=== PATIENT | female | born 1965 | race Caucasian/White ===

== ENCOUNTER → 2016-11-20 | Outpatient (REF) | payer BC | LOC: M SFHCWAGY 14:51 | PROVIDERS: ATTEND Nurse Practitioner Family | DX: Z12.4 Encounter for screening for malignant neoplasm of cervix (principal); Z12.31 Encounter for screening mammogram for malignant neoplasm of breast ==

== ENCOUNTER → 2016-11-20 | Outpatient (CLI) | payer BC ==
--- NOTE | 2016-11-20 15:21 | REPMRS ---
Patient History The patient states she had a clinical breast exam in 11/2016. Family history of colorectal cancer in sister at age 50 or over, breast cancer in sister, and ovarian cancer in sister. Digital Woman Screen Mammo: November 20, 2016 - Exam #: [id number] Bilateral CC and MLO view(s) were taken. Technologist: Ayana James, Technologist Prior study comparison: November 15, 2015, bilateral digital mammo screening bilat, performed at [facility]. November 02, 2014, bilateral digital mammo screening bilat, performed at [facility]. FINDINGS: There are scattered fibroglandular densities. There has been no change in the appearance of the mammogram from the prior studies. There is a mild amount of residual fibroglandular tissue which is fairly symmetric. There is no interval development of dominant mass, architectural distortion, or clustered microcalcification suggestive of malignancy. ASSESSMENT: BI-RADS/ACR category 1 mammogram. Negative. Recommendation Routine screening mammogram in 1 year (for women over age 40). This mammogram was interpreted with the aid of an FDA-approved computer-aided dectection system. Electronically Signed By: Duke Madrid MD 11/20/16 [id number]
== END ==
LOC: M WHC 14:24
PROVIDERS: ATTEND Nurse Practitioner Family
DX: Z12.31 Encounter for screening mammogram for malignant neoplasm of breast (principal)

== ENCOUNTER → 2018-03-16 | Outpatient (CLI) | payer BC ==
[2018-03-16 11:00] LABS: HEMATOCRIT 43.4 % (36.0-47.0); HEMOGLOBIN 14.3 g/dl (12.0-15.5); MEAN CORPUSCULAR HEMOGLOBIN 31.6 pg (27.0-33.0); MEAN CORPUSCULAR HGB CONC 32.9 g/dl (32.0-36.5); MEAN CORPUSCULAR VOLUME 95.8 fl (80.0-96.0); PLATELET COUNT, AUTOMATED 205 10^3/uL (150-450); RED BLOOD COUNT 4.53 10^6/uL (4.00-5.40); RED CELL DISTRIBUTION WIDTH 12.2 % (11.5-14.5); WHITE BLOOD COUNT 7.2 10^3/uL (4.0-10.0)
[2018-03-16 11:17] LABS: ESTIMATED AVERAGE GLUCOSE 108 MG/DL (60-110); HEMOGLOBIN A1c 5.4 %
[2018-03-16 11:33] LABS: ALBUMIN 3.7 GM/DL (3.2-5.2); ALBUMIN/GLOBULIN RATIO 0.97 (1.00-1.93); ALKALINE PHOSPHATASE 79 U/L (45-117); ALT/SGPT 27 U/L (12-78); ANION GAP 7 MEQ/L (8-16); AST/SGOT 23 U/L (7-37); BILIRUBIN,TOTAL 0.4 MG/DL (0.2-1.0); BLOOD UREA NITROGEN 8 MG/DL (7-18); CARBON DIOXIDE LEVEL 32 MEQ/L (21-32); CHLORIDE LEVEL 105 MEQ/L (98-107); CHOLESTEROL LEVEL 203 MG/DL (<200); CHOLESTEROL RISK RATIO 2.445 (<5); CREATININE FOR GFR 0.67 MG/DL (0.55-1.30); GLOMERULAR FILTRATION RATE > 60.0 (>51); GLUCOSE, FASTING 82 MG/DL (70-100); HDL CHOLESTEROL 83 MG/DL (>40); LDL CHOLESTEROL 102.8 MG/DL (<100); NON-HDL-C 120 MG/DL; POTASSIUM SERUM 4.7 MEQ/L (3.5-5.1); SODIUM LEVEL 144 MEQ/L (136-145); THYROID STIMULATING HORMONE 0.281 uIU/ML (0.358-3.740); TOTAL PROTEIN 7.5 GM/DL (6.4-8.2); TRIGLYCERIDES LEVEL 86 MG/DL (<150)
[2018-03-18 12:44] LABS: TOTAL 25(OH) VITAMIN D 10.3 NG/ML (30.0-100.0)
== END ==
LOC: M LAB 10:30
DX: E03.9 Hypothyroidism, unspecified (principal); D64.9 Anemia, unspecified; R53.83 Other fatigue
CPT/HCPCS: 71046

== ENCOUNTER → 2020-01-09 | Outpatient (REF) | payer BC ==
[2020-01-09 13:45] LABS: HEMOGLOBIN 12.9 g/dl (12.0-15.5); MEAN CORPUSCULAR HEMOGLOBIN 32.9 pg (27.0-33.0); MEAN CORPUSCULAR HGB CONC 32.3 g/dl (32.0-36.5); PLATELET COUNT, AUTOMATED 204 10^3/uL (150-450); RED BLOOD COUNT 3.92 10^6/uL (4.00-5.40)
[2020-01-09 14:08] LABS: ALBUMIN 3.7 GM/DL (3.2-5.2); ALT/SGPT 29 U/L (12-78); BILIRUBIN,TOTAL 0.5 MG/DL (0.2-1.0); BLOOD UREA NITROGEN 13 MG/DL (7-18); CALCIUM LEVEL 9.2 MG/DL (8.5-10.1); CARBON DIOXIDE LEVEL 30 MEQ/L (21-32); CHLORIDE LEVEL 104 MEQ/L (98-107); CHOLESTEROL LEVEL 194 MG/DL (<200); CHOLESTEROL RISK RATIO 2.282 (<5); CREATININE FOR GFR 0.57 MG/DL (0.55-1.30); FERRITIN 35 NG/ML (8-252); GLOMERULAR FILTRATION RATE > 60.0 (>51); GLUCOSE, FASTING 83 MG/DL (70-100); HDL CHOLESTEROL 85 MG/DL (>40); IRON (FE) 73 UG/DL (50-170); LDL CHOLESTEROL 95 MG/DL (<100); NON-HDL-C 109 MG/DL; PERCENT SATURATION 20.9 % (13.2-45.0); POTASSIUM SERUM 5.1 MEQ/L (3.5-5.1); SODIUM LEVEL 139 MEQ/L (136-145); THYROID STIMULATING HORMONE 0.474 uIU/ML (0.358-3.740); TOTAL IRON BINDING CAPACITY 349 UG/DL (250-450); TRIGLYCERIDES LEVEL 68 MG/DL (<150)
[2020-01-09 14:19] LABS: TOTAL 25(OH) VITAMIN D 7.8 NG/ML (30.0-100.0)
== END ==
LOC: M SFHCLACO 09:45 → M SFHCADAM 09:45
PROVIDERS: ATTEND Physician Assistant
DX: Z00.00 Encounter for general adult medical examination without abnormal findings (principal); I10 Essential (primary) hypertension; E05.90 Thyrotoxicosis, unspecified without thyrotoxic crisis or storm; D50.8 Other iron deficiency anemias; F34.1 Dysthymic disorder

== ENCOUNTER → 2020-11-08 | Outpatient (CLI) | payer BC ==
[~2020-11-08] MED LIST: PROHANCE 279.3MG/ML 15ML VIAL As Ordered ONE
--- NOTE | 2020-11-09 09:00 | REP ---
INDICATION: LEFT PARIETAL MASS. Patient reports a lump on the left side of the forehead which has been present since childhood, but recently grown in size and recent development of headaches and vision issues. COMPARISON: No comparison brain imaging.. TECHNIQUE: Axial and sagittal imaging planes are utilized for T1 and T2-weighted scans. Sequences include spin-echo, fast spin echo, FLAIR, and diffusion weighted sequences. Post gadolinium enhanced images are acquired in all 3 planes following the intravenous injection of 14 mL of ProHance. FINDINGS: r there is a 2.2 x 3.4 x 1.5 cm dome-shaped lesion in the left frontal scalp. The underlying outer and inner table and diploe of the calvarium is intact. The lesions appearance suggests a subperiosteal or subgaleal lesion. It is homogeneously intermediate in T1 and T2 weighted signal intensity and shows no internal enhancement. This is consistent with a proteinaceous fluid containing cystic lesion. The bony calvarium is otherwise intact. Craniocervical junction and upper cervical cord are normal in appearance. There is mucosal thickening completely filling the ethmoid air cells bilaterally. Mucosal thickening is seen in the frontal sinuses bilaterally and in the right sphenoid sinus. There is mild mucosal thickening in the left maxillary sinus and the small right maxillary sinus is filled with fluid and mucosal thickening. Poly sinusitis pattern. No evidence of mastoid sinusitis seen. No intraorbital abnormality is seen. The lateral, third, and fourth ventricles are normal in size and position. [place]-white differentiation pattern is intact above and below the tentorium. There is no evidence of intracranial hemorrhage. No mass, infarction, extra-axial fluid collection or midline shift is seen. No abnormal white matter lesion is seen. Postcontrast images show enhancement in normal intracranial vascular structures. No abnormal intracranial contrast enhancement is appreciated. IMPRESSION: There is a cystic lesion in the left frontal scalp, possibly subperiosteal versus subgaleal. There is poly sinusitis changes most pronounced affecting the ethmoid air cells bilaterally. Otherwise negative pre and post-contrast brain MRI study. <Electronically signed by Martinez Marie > 11/09/20 0937
== END ==
LOC: M RAD 15:51
PROVIDERS: ATTEND Physician Assistant
DX: G93.89 Other specified disorders of brain (principal)
CPT/HCPCS: 70553; A9576

== ENCOUNTER → 2020-12-14 | Outpatient (REF) | payer BC ==
[2020-12-14 18:30] LABS: HEMATOCRIT 37.7 % (36.0-47.0); HEMOGLOBIN 11.6 g/dl (12.0-15.5); MEAN CORPUSCULAR HEMOGLOBIN 29.9 pg (27.0-33.0); MEAN CORPUSCULAR HGB CONC 30.8 g/dl (32.0-36.5); MEAN CORPUSCULAR VOLUME 97.2 fl (80.0-96.0); PLATELET COUNT, AUTOMATED 226 10^3/uL (150-450); RED BLOOD COUNT 3.88 10^6/uL (4.00-5.40); WHITE BLOOD COUNT 5.8 10^3/uL (4.0-10.0)
[2020-12-14 18:54] LABS: PERCENT SATURATION 8.5 % (13.2-45.0); THYROID STIMULATING HORMONE 0.212 uIU/ML (0.358-3.740)
[2020-12-14 18:56] LABS: TOTAL 25(OH) VITAMIN D 30.4 NG/ML (30.0-100.0)
== END ==
LOC: M SFHCADAM 14:34
PROVIDERS: ATTEND Physician Assistant
DX: D50.8 Other iron deficiency anemias (principal); E05.90 Thyrotoxicosis, unspecified without thyrotoxic crisis or storm; F34.1 Dysthymic disorder

== ENCOUNTER → 2021-08-02 | Outpatient (REF) | payer BC ==
[2021-08-02 18:40] LABS: BLOOD UREA NITROGEN 15 MG/DL (7-18); CALCIUM LEVEL 8.9 MG/DL (8.5-10.1); CARBON DIOXIDE LEVEL 29 MEQ/L (21-32); CHLORIDE LEVEL 102 MEQ/L (98-107); CREATININE FOR GFR 0.57 MG/DL (0.55-1.30); GLOMERULAR FILTRATION RATE > 60.0 (>51); GLUCOSE, FASTING 80 MG/DL (70-100); POTASSIUM SERUM 4.8 MEQ/L (3.5-5.1); SODIUM LEVEL 137 MEQ/L (136-145)
== END ==
LOC: M SFHCADAM 15:11
PROVIDERS: ATTEND Physician Assistant
DX: I10 Essential (primary) hypertension (principal)

== ENCOUNTER → 2021-11-14 | Outpatient (CLI) | payer BC ==
[~2021-11-14] MED LIST changes: +ALPR0.5T3 PO; +AMBI10TA PO; +HYDR-3490 PO; +HYDR-4517 PO; +IRBE300T7 PO; -PROHANCE 279.3MG/ML 15ML VIAL As Ordered ONE
== END ==
LOC: M LABSMTC 11:30
PROVIDERS: ATTEND Anesthesiology
DX: Z01.812 Encounter for preprocedural laboratory examination (principal); Z20.822 Contact with and (suspected) exposure to COVID-19

== ENCOUNTER 2021-11-18 09:16 | Day surgery (SDC) | payer BC ==
[~2021-11-18] VITALS: Ht 167.6 cm; Wt 72.3 kg
[~2021-11-18 09:16] MED LIST changes: +CelecoXIB 400 MG CAP PO ONE; +LR 1,000 ML IV ONE; +ceFAZolin SOD 1 GM in D5W MINI-BAG PLUS 50 ML IV ONE
[2021-11-18] MEDS ORDERED: LIDOCAINE 1% SDV 30ML VIAL As Ordered ONE (09:33)
[2021-11-18] MEDS ORDERED: LIDOCAINE W/EPINEPHRINE 1% 20ML VIAL As Ordered ONE (09:33)
[2021-11-18] MEDS ORDERED: LIDOCAINE 2% 100MG/5ML SDV (FOR ANES.) As Ordered ONE (10:01)
[2021-11-18] MEDS ORDERED: propofoL 200 MG/20 ML VIAL As Ordered ONE (10:01)
[2021-11-18] MEDS ORDERED: fentaNYL 100 MCG/2 ML INJECTION As Ordered ONE ×2 (10:01→11:25)
[2021-11-18] MEDS ORDERED: MIDAZOLAM INJ 2MG/2ML VIAL (J2250 PER 1MG) As Ordered ONE (10:01)
[2021-11-18] MEDS ORDERED: SCOPOLAMINE 1MG TRANSDERMAL PATCH TOP ONE (10:10)
[2021-11-18] MEDS ORDERED: dexameTHASONE 4 MG/ML 1ML VIAL (J1100 PER 1MG) As Ordered ONE (10:26)
[2021-11-18] MEDS ORDERED: ONDANSETRON 4MG/2ML VIAL As Ordered ONE (10:26)
[2021-11-18] MEDS ORDERED: SCOPOLAMINE 1MG TRANSDERMAL PATCH As Ordered ONE (10:29)
[2021-11-18] MEDS ORDERED: ePHEDrine SULFATE 25 MG/5 ML(5MG/ML) SYRINGE As Ordered ONE ×2 (10:30→10:47)
[2021-11-18] MEDS ORDERED: METOCLOPRAMIDE INJ 10MG/2ML VIAL (J2765 PER 1) As Ordered ONE (10:32)
[2021-11-18] MEDS ORDERED: PERCOCET 5MG/325MG TAB PO PRN (12:15)
[2021-11-18] MEDS ORDERED: HYDROMORPHONE HCL 0.5 MG/ 0.5 ML SYRINGE (J1170 PER 1) IV PRN (12:15)
[2021-11-18] MEDS ORDERED: fentaNYL 100 MCG/2 ML INJECTION IV PRN (12:15)
[2021-11-18] MEDS ORDERED: ONDANSETRON 4MG/2ML VIAL IV PRN (12:15)
[2021-11-18] MEDS ORDERED: LR 1,000 ML IV SCH (12:15)
[2021-11-18] MEDS ORDERED: ACETAMINOPHEN *IV* 1,000 MG IV ONE ×2 (12:15)
[2021-11-18] MEDS ORDERED: KETOROLAC 30 MG/ML 1ML VIAL IV PRN (12:15)
[2021-11-18] MEDS: oxyCODONE 5MG TAB PO PRN ×2 (12:22→13:08)
[2021-11-18 13:20] VITALS: BP 132/73
== END 2021-11-18 14:16 | disposition home or self-care (01) ==
LOC: M SDC 09:16
PROVIDERS: ATTEND Surgery
DX: L72.11 Pilar cyst (principal); I10 Essential (primary) hypertension; F41.9 Anxiety disorder, unspecified; F32.9 Major depressive disorder, single episode, unspecified; Z98.84 Bariatric surgery status; K57.92 Diverticulitis of intestine, part unspecified, without perforation or abscess without bleeding; D64.9 Anemia, unspecified; Z79.899 Other long term (current) drug therapy
CPT/HCPCS: 11424; 88304; J0131; J0690; J1100; J2250; J2405; J2765; J3010

== ENCOUNTER → 2022-04-25 | Outpatient (REF) | payer BC ==
[~2022-04-25] MED LIST changes: -CelecoXIB 400 MG CAP PO ONE; -LR 1,000 ML IV ONE; -ceFAZolin SOD 1 GM in D5W MINI-BAG PLUS 50 ML IV ONE
[2022-04-25 14:16] LABS: BASO # 0.1 10^3/uL (0.0-0.2); BASO % 1.2 % (0.0-1.0); EOS # 0.7 10^3/uL (0.0-0.5); EOS % 10.8 % (0.0-3.0); HEMATOCRIT 37.6 % (36.0-47.0); HEMOGLOBIN 11.5 g/dl (12.0-15.5); LYMPH # 2.2 10^3/uL (1.5-5.0); LYMPH % 36.2 % (24.0-44.0); MEAN CORPUSCULAR HEMOGLOBIN 28.4 pg (27.0-33.0); MEAN CORPUSCULAR HGB CONC 30.6 g/dl (32.0-36.5); MEAN CORPUSCULAR VOLUME 92.8 fl (80.0-96.0); MONO # 0.8 10^3/uL (0.0-0.8); MONO % 13.4 % (2.0-8.0); NEUTROPHILS # 2.3 10^3/uL (1.5-8.5); NEUTROPHILS % 38.1 % (36.0-66.0); PLATELET COUNT, AUTOMATED 193 10^3/uL (150-450); RED BLOOD COUNT 4.05 10^6/uL (4.00-5.40)
[2022-04-25 14:25] LABS: ALBUMIN 3.6 GM/DL (3.2-5.2); ALT/SGPT 26 U/L (12-78); BILIRUBIN,TOTAL 0.4 MG/DL (0.2-1.0); BLOOD UREA NITROGEN 14 MG/DL (7-18); CALCIUM LEVEL 9.4 MG/DL (8.5-10.1); CARBON DIOXIDE LEVEL 31 MEQ/L (21-32); CHLORIDE LEVEL 103 MEQ/L (98-107); CHOLESTEROL LEVEL 215 MG/DL (<200); CHOLESTEROL RISK RATIO 1.919 (<5); CREATININE FOR GFR 0.66 MG/DL (0.55-1.30); FREE T4 0.72 NG/DL (0.76-1.46); GLOMERULAR FILTRATION RATE > 60.0 (>51); GLUCOSE, FASTING 85 MG/DL (70-100); HDL CHOLESTEROL 112 MG/DL (>40); LDL CHOLESTEROL 93 MG/DL (<100); NON-HDL-C 103 MG/DL; POTASSIUM SERUM 5.1 MEQ/L (3.5-5.1); SODIUM LEVEL 138 MEQ/L (136-145); TOTAL PROTEIN 7.2 GM/DL (6.4-8.2); TRIGLYCERIDES LEVEL 52 MG/DL (<150)
[2022-04-25 14:59] LABS: TOTAL 25(OH) VITAMIN D 14.9 NG/ML (30.0-100.0)
== END ==
LOC: M SFHCADAM 08:25
PROVIDERS: ATTEND Physician Assistant Medical
DX: I10 Essential (primary) hypertension (principal); E55.9 Vitamin D deficiency, unspecified; D50.8 Other iron deficiency anemias; F41.1 Generalized anxiety disorder

== ENCOUNTER → 2022-04-25 | Outpatient (CLI) | payer BC | LOC: M ADAMS 09:08 | PROVIDERS: ATTEND Physician Assistant Medical | DX: I10 Essential (primary) hypertension (principal); M54.50 Low back pain, unspecified ==

== ENCOUNTER → 2022-12-20 | Outpatient (REF) | payer BC | LOC: M SFHCADAM 10:39 | PROVIDERS: ATTEND Physician Assistant Medical | DX: E55.9 Vitamin D deficiency, unspecified (principal) ==

== ENCOUNTER → 2023-02-14 | Outpatient (CLI) | payer BC | LOC: M WHC 11:16 | PROVIDERS: ATTEND Physician Assistant Medical | DX: Z12.31 Encounter for screening mammogram for malignant neoplasm of breast (principal); Z80.41 Family history of malignant neoplasm of ovary ==

== ENCOUNTER → 2023-03-09 | Outpatient (CLI) | payer BC | LOC: M PLAIMG 11:15 | PROVIDERS: ATTEND Physician Assistant Medical | DX: M54.41 Lumbago with sciatica, right side (principal) ==

== ENCOUNTER → 2023-08-16 | Outpatient (REF) | payer BC ==
[2023-08-16 13:43] LABS: BASO # 0.1 10^3/uL (0.0-0.2); BASO % 0.9 % (0.0-1.0); EOS # 0.4 10^3/uL (0.0-0.5); EOS % 5.6 % (0.0-3.0); HEMATOCRIT 34.4 % (36.0-47.0); HEMOGLOBIN 10.1 g/dl (12.0-15.5); LYMPH # 2.6 10^3/uL (1.5-5.0); LYMPH % 40.9 % (24.0-44.0); MEAN CORPUSCULAR HEMOGLOBIN 25.3 pg (27.0-33.0); MEAN CORPUSCULAR HGB CONC 29.4 g/dl (32.0-36.5); NEUTROPHILS # 2.4 10^3/uL (1.5-8.5); NEUTROPHILS % 37.4 % (36.0-66.0); PLATELET COUNT, AUTOMATED 264 10^3/uL (150-450); WHITE BLOOD COUNT 6.4 10^3/uL (4.0-10.0)
[2023-08-16 14:06] LABS: IRON (FE) 24 UG/DL (50-170)
[2023-08-16 14:07] LABS: ALBUMIN 3.8 G/DL (3.2-5.2); ALKALINE PHOSPHATASE 68 U/L (46-116); ALT/SGPT 17 U/L (7.0-40); AST/SGOT 22 U/L (<34); BILIRUBIN,TOTAL 0.4 MG/DL (0.3-1.2); BLOOD UREA NITROGEN 12 MG/DL (9-23); CARBON DIOXIDE LEVEL 30 MMOL/L (20-31); CHLORIDE LEVEL 100 MMOL/L (98-107); CHOLESTEROL LEVEL 208 MG/DL (<200); CHOLESTEROL RISK RATIO 2.64 (<5); CREATININE FOR GFR 0.54 MG/DL (0.55-1.30); GLOMERULAR FILTRATION RATE > 60.0 (>51); GLUCOSE, FASTING 83 MG/DL (60-100); HDL CHOLESTEROL 78.7 MG/DL (>40); LDL CHOLESTEROL 113.5 MG/DL (<100); MAGNESIUM LEVEL 2.2 MG/DL (1.8-2.4); NON-HDL-C 129.3 MG/DL; POTASSIUM SERUM 5.2 MMOL/L (3.5-5.1); SODIUM LEVEL 138 MMOL/L (136-145); TOTAL IRON BINDING CAPACITY 400 UG/DL (250-425); TOTAL PROTEIN 7.2 G/DL (5.7-8.2); TRIGLYCERIDES LEVEL 79 MG/DL (<150)
[2023-08-16 14:09] LABS: FERRITIN 4.4 NG/ML (7.3-270.7); THYROID STIMULATING HORMONE 1.718 uIU/ML (0.55-4.78)
[2023-08-16 14:11] LABS: TOTAL 25(OH) VITAMIN D 11.5 NG/ML (20.0-100.0)
== END ==
LOC: M SFHCADAM 09:42
PROVIDERS: ATTEND Physician Assistant Medical
DX: I10 Essential (primary) hypertension (principal); D50.8 Other iron deficiency anemias; E55.9 Vitamin D deficiency, unspecified; F33.1 Major depressive disorder, recurrent, moderate

== ENCOUNTER → 2023-09-24 | Outpatient (CLI) | payer BC ==
[~2023-09-24] MED LIST changes: +IRBE300T25 PO; -IRBE300T7 PO
== END ==
LOC: M CARPUL 13:04
PROVIDERS: ATTEND Physician Assistant Medical
DX: R60.0 Localized edema (principal); I27.20 Pulmonary hypertension, unspecified; I36.0 Nonrheumatic tricuspid (valve) stenosis

== ENCOUNTER → 2023-12-11 | Outpatient (REF) | payer BC ==
[2023-12-11 18:41] LABS: BASO # 0.1 10^3/uL (0.0-0.2); BASO % 0.9 % (0.0-1.0); EOS # 0.3 10^3/uL (0.0-0.5); EOS % 3.9 % (0.0-3.0); HEMATOCRIT 33.5 % (36.0-47.0); HEMOGLOBIN 9.6 g/dl (12.0-15.5); LYMPH # 2.4 10^3/uL (1.5-5.0); LYMPH % 37.3 % (24.0-44.0); MEAN CORPUSCULAR HEMOGLOBIN 24.4 pg (27.0-33.0); MEAN CORPUSCULAR HGB CONC 28.7 g/dl (32.0-36.5); MONO # 0.8 10^3/uL (0.0-0.8); MONO % 12.1 % (2.0-8.0); NEUTROPHILS # 2.9 10^3/uL (1.5-8.5); NEUTROPHILS % 45.5 % (36.0-66.0); PLATELET COUNT, AUTOMATED 285 10^3/uL (150-450); RED BLOOD COUNT 3.94 10^6/uL (4.00-5.40); WHITE BLOOD COUNT 6.4 10^3/uL (4.0-10.0)
[2023-12-11 18:57] LABS: PERCENT SATURATION 3.3 % (13.2-45.0)
[2023-12-11 18:59] LABS: FERRITIN 8.1 NG/ML (7.3-270.7); TOTAL 25(OH) VITAMIN D 17.2 NG/ML (20.0-100.0)
== END ==
LOC: M SFHCADAM 11:51
PROVIDERS: ATTEND Physician Assistant Medical
DX: E55.9 Vitamin D deficiency, unspecified (principal); D50.9 Iron deficiency anemia, unspecified; Z98.84 Bariatric surgery status

== ENCOUNTER → 2024-01-24 | Outpatient (REF) | payer BC | LOC: M SFHCADAM 12:06 | PROVIDERS: ATTEND Physician Assistant Medical | DX: R05.1 Acute cough (principal) ==